=== PATIENT | female | born 1995 | race African-American/Black ===

== ENCOUNTER → 2020-02-22 | Outpatient (REF) | payer MEDICAID ==
[2020-02-22 20:00] LABS: AMORPHOUS SEDIMENT SMALL (NEGATIVE); APPEARANCE, URINE TURBID (CLEAR); BACTERIA, URINE AUTO NEGATIVE (NEGATIVE); BILIRUBIN, URINE AUTO NEGATIVE (NEGATIVE); BLOOD, URINE BLOOD NEGATIVE (NEGATIVE); COLOR, URINE YELLOW (YELLOW); GLUCOSE, URINE (UA) AUTO NEGATIVE (NEGATIVE); KETONE, URINE AUTO TRACE mg/dL (NEGATIVE); LEUKOCYTE ESTERASE, URINE AUTO 2+ (NEGATIVE); MUCUS, URINE LARGE (NEGATIVE); NITRITE, URINE AUTO NEGATIVE (NEGATIVE); PROTEIN, URINE AUTO 1+ mg/dL (NEGATIVE); RBC, URINE AUTO 0 /HPF (0-3); SPECIFIC GRAVITY URINE AUTO 1.029 (1.002-1.035); SQUAMOUS EPITHELIAL CELL UR AU 13 /HPF (0-6); WBC, URINE AUTO 0 /HPF (0-3)
== END ==
LOC: M LAB 19:10
PROVIDERS: ATTEND Family Medicine Addiction Medicine
DX: R39.11 Hesitancy of micturition (principal)

== ENCOUNTER 2022-11-02 10:56 | Emergency (ER) | payer MEDICAID, OTHER ==
[~2022-11-02] VITALS: Ht 160 cm; Wt 58.0 kg
[2022-11-02 13:06] LABS: BASO % 0.5 % (0.0-1.0); EOS # 0.1 10^3/uL (0.0-0.5); EOS % 0.6 % (0.0-3.0); HEMATOCRIT 33.4 % (36.0-47.0); HEMOGLOBIN 10.8 g/dl (12.0-15.5); LYMPH # 1.9 10^3/uL (1.5-5.0); LYMPH % 24.3 % (24.0-44.0); MEAN CORPUSCULAR HEMOGLOBIN 27.1 pg (27.0-33.0); MEAN CORPUSCULAR HGB CONC 32.3 g/dl (32.0-36.5); MEAN CORPUSCULAR VOLUME 83.9 fl (80.0-96.0); MONO # 0.4 10^3/uL (0.0-0.8); MONO % 5.1 % (2.0-8.0); NEUTROPHILS # 5.4 10^3/uL (1.5-8.5); NEUTROPHILS % 69.2 % (36.0-66.0); PLATELET COUNT, AUTOMATED 401 10^3/uL (150-450); RED BLOOD COUNT 3.98 10^6/uL (4.00-5.40); WHITE BLOOD COUNT 7.9 10^3/uL (4.0-10.0)
[2022-11-02 13:26] LABS: BLOOD UREA NITROGEN 7 MG/DL (9-23); CALCIUM LEVEL 9.2 MG/DL (8.5-10.1); CARBON DIOXIDE LEVEL 27 MMOL/L (20-31); CHLORIDE LEVEL 102 MMOL/L (98-107); CREATININE FOR GFR 0.61 MG/DL (0.55-1.30); GLOMERULAR FILTRATION RATE > 60.0 (>60); GLUCOSE, FASTING 99 MG/DL (60-100); POTASSIUM SERUM 3.6 MMOL/L (3.5-5.1); SODIUM LEVEL 137 MMOL/L (136-145)
[2022-11-02 14:43] VITALS: BP 116/58
== END 2022-11-02 15:40 | disposition left against medical advice (07) ==
LOC: M ED 10:56
DX: Z53.21 Procedure and treatment not carried out due to patient leaving prior to being seen by health care provider (principal)

== ENCOUNTER 2024-10-20 01:26 | Emergency (ER) | payer OTHER, SELFPAY ==
[~2024-10-20] VITALS: Ht 160 cm; Wt 50.0 kg
[~2024-10-20 01:26] MED LIST: RALTEGRAVIR 400 MG TAB (ISENTRESS) PO SCH
[2024-10-20 01:28] VITALS: BP 132/89; TEMP 99.1
[2024-10-20] MEDS ORDERED: EMTR1TAB16 PO (05:05)
[2024-10-20] MEDS ORDERED: ONDA-282 PO (05:05)
[2024-10-20] MEDS ORDERED: DOXY100C82 PO (05:05)
[2024-10-20] MEDS ORDERED: RALT40TA PO (05:05)
[2024-10-20] MEDS ORDERED: EXPOSURE KIT-ADULT 7 DAY SUPPLY PO ONE (05:05)
[2024-10-20] MEDS: AZITHROMYCIN 250MG TABLET PO ONE (07:00)
[2024-10-20] MEDS: DOXYCYCLINE HYCLATE 100MG TABLET PO ONE (07:00)
[2024-10-20] MEDS: ULIPRISTAL ACETATE 30MG TAB (ELLA) PO ONE (07:00)
[2024-10-20] MEDS: metroNIDAZOLE (FLAGYL) 500MG TABLET PO ONE (07:00)
[2024-10-20] MEDS: RALTEGRAVIR 400 MG TAB (ISENTRESS) PO ONE (07:00)
[2024-10-20] MEDS: EMTRICITABINE/TENOFOVIR 200MG/300MG TABLET PO ONE (07:01)
[2024-10-20] MEDS: LIDOCAINE 1% SDV 5ML VIAL DILUENT ONE (07:21)
[2024-10-20] MEDS: cefTRIAXone 500MG VIAL IM ONE (07:21)
[2024-10-20 07:25] LABS: BASO # 0.1 10^3/uL (0.0-0.2); EOS # 0.2 10^3/uL (0.0-0.5); EOS % 2.7 % (0.0-3.0); HEMATOCRIT 33.7 % (36.0-47.0); LYMPH % 33.1 % (24.0-44.0); MEAN CORPUSCULAR HEMOGLOBIN 26.4 pg (27.0-33.0); MEAN CORPUSCULAR HGB CONC 32.6 g/dl (32.0-36.5); MONO # 0.4 10^3/uL (0.0-0.8); MONO % 6.7 % (2.0-8.0); NEUTROPHILS # 3.4 10^3/uL (1.5-8.5); NEUTROPHILS % 56.2 % (36.0-66.0); PLATELET COUNT, AUTOMATED 427 10^3/uL (150-450); RED BLOOD COUNT 4.16 10^6/uL (4.00-5.40)
[2024-10-20 07:54] LABS: ALBUMIN 4.5 G/DL (3.2-5.2); ALKALINE PHOSPHATASE 73 U/L (35-104); ALT/SGPT 12 U/L (7.0-40); AST/SGOT 14 U/L (<34); BILIRUBIN,TOTAL 0.6 MG/DL (0.3-1.2); BLOOD UREA NITROGEN 11 MG/DL (9-23); CALCIUM LEVEL 9.6 MG/DL (8.5-10.1); CARBON DIOXIDE LEVEL 29 MMOL/L (20-31); CHLORIDE LEVEL 100 MMOL/L (98-107); CREATININE FOR GFR 0.81 MG/DL (0.55-1.30); GLOMERULAR FILTRATION RATE > 60.0 (>60); GLUCOSE, FASTING 94 MG/DL (60-100); SODIUM LEVEL 140 MMOL/L (136-145); TOTAL PROTEIN 8.3 G/DL (5.7-8.2)
[2024-10-20 08:00] LABS: HCG, SERUM QUALITATIVE NEGATIVE (NEGATIVE)
[2024-10-20 08:01] LABS: HEPATITIS B SURFACE ANTIBODY NEGATIVE (POSITIVE)
[2024-10-20 08:13] LABS: HEPATITIS B SURFACE ANTIGEN NEGATIVE (NEGATIVE)
[2024-10-20 08:26] LABS: HIV 1&2 SCREEN NEGATIVE (NEGATIVE)
[2024-10-20 08:35] LABS: HEPATITIS C VIRUS ABY INDEX 0.02 INDEX (<0.8)
[2024-10-20 08:43] VITALS: O2SAT 99
[2024-10-21] MEDS ORDERED: EMTRICITABINE/TENOFOVIR 200MG/300MG TABLET PO SCH
== END 2024-10-20 08:43 | disposition home or self-care (01) ==
LOC: M ED 01:26
DX: T76.21XA Adult sexual abuse, suspected, initial encounter (principal)
CPT/HCPCS: 80053; 84703; 85025; 86706; 86780; 86803; 87340; 87389; 96372; 99283; J0696

== ENCOUNTER → 2025-08-02 | Outpatient (CLI) | payer MEDICAID, OTHER ==
[~2025-08-02] MED LIST changes: +DOXY-442 PO; +EMTR1TAB16 PO; +ONDA-282 PO; +RALT40TA PO; -RALTEGRAVIR 400 MG TAB (ISENTRESS) PO SCH
[2025-08-02 14:51] LABS: PLATELET COUNT, AUTOMATED 364 10^3/uL (150-450)
[2025-08-02 15:31] LABS: HIV 1&2 SCREEN NEGATIVE (NEGATIVE)
[2025-08-02 15:40] LABS: HEPATITIS C VIRUS ABY INDEX < 0.02 INDEX (<0.8)
[2025-08-02 15:52] LABS: Trichomonas vaginalis (AMP) NOT DETECTED (NEGATIVE)
[2025-08-02 16:16] LABS: GC DNA AMPLIFICATION NEGATIVE (NEGATIVE)
== END ==
LOC: M PLALAB 11:21
PROVIDERS: ATTEND Specialist
DX: Z34.81 Encounter for supervision of other normal pregnancy, first trimester (principal)

== ENCOUNTER → 2025-08-30 | Outpatient (REF) | payer OTHER, MEDICAID | LOC: M LAB REF 12:52 | PROVIDERS: ATTEND Specialist | DX: N39.0 Urinary tract infection, site not specified (principal) ==

== ENCOUNTER → 2025-09-25 | Outpatient (CLI) | payer OTHER | LOC: M WHC 13:01 | PROVIDERS: ATTEND Advanced Practice Midwife | DX: Z36.89 Encounter for other specified antenatal screening (principal) ==